=== PATIENT | female | born 1960 | race Caucasian/White ===

== ENCOUNTER 2017-12-15 12:36 | Observation (INO) | payer OTHER ==
--- NOTE | 2017-12-15 12:42 | ER Document Report ---
ED General - General Stated Complaint: POSSIBLE SYNCOPE Time Seen by Provider: 12/15/17 12:41 Notes: Patient is a 57-year-old female that presents to the emergency department after witnessed syncopal episode. History provided by both the patient and the patient's employer who is at bedside. The patient was outside, and started feeling lightheaded and sat down onto a bench, and then apparently had an episode where she had passed out and went in and out of consciousness, this lasted 5-6 minutes according to bystanders. She was diaphoretic, and had several episodes of vomiting. They did not witness any seizure activity. EMS was called and the patient was brought to the emergency department. At this time the patient is complaining of nausea, lightheadedness, and abdominal cramping, and a frontal headache. She denies having any recent fevers, chills, night sweats, chest pain, shortness of breath or difficulty breathing. She also does complain incidentally of having some dysuria over the past 24 hours. Denies any other complaints at this time. TRAVEL OUTSIDE OF THE [place] IN LAST 30 DAYS: No Past Medical History - Social History Smoking Status: Never Smoker Frequency of alcohol use: None Drug Abuse: None Family History: CAD - Sister had an OR at age 62.. denies: COPD, CVA - Medical History Notes: Denies chronic medical conditions. Past Surgical History: Reports: Hx Cholecystectomy Review of Systems - Review of Systems Notes: REVIEW OF SYSTEMS: CONSTITUTIONAL : Denies fever, chills, or sweats. Denies recent illness. EENT: Denies eye, ear, throat, or mouth pain or symptoms. Denies nasal or sinus congestion. CARDIOVASCULAR: Denies chest pain. RESPIRATORY: Denies cough, cold, or chest congestion. Denies shortness of breath, difficulty breathing, or wheezing. GASTROINTESTINAL: Positive for nausea, vomiting denies abdominal pain. Denies constipation. Last BM: GENITOURINARY: Positive for dysuria denies difficulty urinating,frequency, or blood in urine. FEMALE GENITOURINARY: Denies vaginal bleeding, abnormal or irregular periods. LMP: MUSCULOSKELETAL: Denies neck or back pain or joint pain or swelling. SKIN: Denies rash or skin lesions. HEMATOLOGIC : Denies easy bruising or bleeding. LYMPHATIC: Denies swollen, enlarged glands. NEUROLOGICAL: Positive for lightheadedness and syncopal episode. Denies headache. Denies weakness or paralysis or loss of use of either side. Denies problems with gait or speech. Denies sensory or motor loss. PSYCHIATRIC: Denies anxiety or stress or depression. ALL OTHER SYSTEMS REVIEWED AND NEGATIVE. Physical Exam - Vital signs Vitals: Resp Pulse Ox 19 98 12/15/17 14:27 12/15/17 14:27 - Notes Notes: PHYSICAL EXAMINATION: GENERAL: Appears uncomfortable, complaining of nausea, nontoxic appearing however HEAD: Atraumatic, normocephalic. EYES: Pupils equal round and reactive to light, extraocular movements intact, sclera anicteric, conjunctiva are normal. ENT: nares patent, oropharynx clear without exudates. Moist mucous membranes. NECK: Normal range of motion, supple without lymphadenopathy LUNGS: Breath sounds clear to auscultation bilaterally and equal. No wheezes rales or rhonchi. HEART: Regular rate and rhythm without murmurs ABDOMEN: Soft, nontender, normoactive bowel sounds. No guarding, no rebound. No masses appreciated. EXTREMITIES: Normal range of motion, no pitting or edema. No cyanosis. NEUROLOGICAL: No focal neurological deficits. Moves all extremities spontaneously and on command. PSYCH: Normal mood, normal affect. SKIN: Warm, Dry, normal turgor, no rashes or lesions noted. Course - Re-evaluation Re-evalutation: 12/15/17 12:42 Patient seen and examined, vital signs reviewed. Complaining of nausea on my exam, otherwise no focal findings, cardiac evaluation including EKG, troponin and chest x-ray obtained as well as CT of the head due to the patient's complaint of headache and syncope. Patient is also given IV fluids, Zofran. Results reviewed, patient noted to have slightly elevated troponin, continue to have nausea, she was given aspirin after noted elevated troponin, call was placed to the hospitalist for admission, which they are agreeable to, for serial troponin testing, patient was agreeable to this and made aware of findings. CT of her head was negative as well as her chest x-ray. EKG demonstrated nonspecific T wave inversions as noted. - Vital Signs Vital signs: Temp Pulse Resp BP Pulse Ox 20 154/73 H 96 12/15/17 15:01 12/15/17 15:01 12/15/17 15:01 - Laboratory Result Diagrams: 12/15/17 13:59 12/15/17 13:59 Laboratory results interpreted by me: 12/15/17 12/15/17 13:59 13:59 WBC 13.4 H RDW 14.4 H Seg Neutrophils % 85.6 H Lymphocytes % 10.3 L Absolute Neutrophils 11.4 H Potassium 3.5 L Glucose 160 H Total Bilirubin 1.4 H - Diagnostic Test Radiology reviewed: Image reviewed, Reports reviewed Radiology results interpreted by me: 12/15/17 16:22 No acute findings per radiology or my review. - EKG Interpretation by Me Additional EKG results interpreted by me: 12/15/17 14:29 EKG demonstrates normal sinus rhythm with a ventricular rate of 91 bpm, slight left axis deviation, QTC 463, there is T-wave inversion in lead V2 and V3 as well as lead III, with a predominantly negative QRS, no ST changes noted. Discharge - Discharge Clinical Impression: Elevated troponin, Nausea and vomiting, Hypokalemia Syncope Qualifiers: Syncope type: unspecified Qualified Code(s): R55 - Syncope and collapse Condition: Fair Disposition: ADMITTED OBSERVATION Admitting Provider: Hospitalist - Dr. Jaramillo Unit Admitted: Telemetry
[2017-12-15] MEDS ORDERED: ONDANSETRON 4 MG TAB.RAPDIS PO ONE (13:06)
[2017-12-15] MEDS ORDERED: NORMAL SALINE 1000 ML 1,000 ML IV ONE (13:06)
--- NOTE | 2017-12-15 14:00 | RADIOLOGY REPORT (SQ) ---
EXAM DESCRIPTION: CT HEAD WITHOUT COMPLETED DATE/TIME: 12/15/2017 1:48 pm REASON FOR STUDY: syncope, headache COMPARISON: None. TECHNIQUE: Axial images acquired through the brain without intravenous contrast. Images reviewed wi th bone, brain and subdural windows. Additional sagittal and coronal reconstructions were generated. Images stored on PACS. All CT scanners at this facility use dose modulation, iterative reconstruction, and/or weight based d osing when appropriate to reduce radiation dose to as low as reasonably achievable (ALARA). [facility]: Dose Right [facility]: CareDose [facility]: Dose Right [facility]: Teradose 4D [facility]: Smart Convrrt RADIATION DOSE: CT Rad equipment meets quality standard of care and radiation dose reduction techniq ues were employed. CTDIvol: 53.2 mGy. DLP: 1017 mGy-cm. mGy. LIMITATIONS: None. FINDINGS: VENTRICLES: Normal size and contour. CEREBRUM: No masses. No hemorrhage. No midline shift. No evidence for acute infarction. Normal gra y/white matter differentiation. No areas of low density in the white matter. CEREBELLUM: No masses. No hemorrhage. No alteration of density. No evidence for acute infarction. EXTRAAXIAL SPACES: No fluid collections. No masses. ORBITS AND GLOBE: No intra- or extraconal masses. Normal contour of globe without masses. CALVARIUM: No fracture. PARANASAL SINUSES: No fluid or mucosal thickening. SOFT TISSUES: No mass or hematoma. OTHER: No other significant finding. IMPRESSION: NORMAL BRAIN CT WITHOUT CONTRAST. EVIDENCE OF ACUTE STROKE: NO. COMMENT: Quality ID # 436: Final reports with documentation of one or more dose reduction techniques (e.g., Automated exposure control, adjustment of the mA and/or kV according to patient size, use of iterative reconstruction technique) TECHNICAL DOCUMENTATION: JOB ID: [id number] [employer]- All Rights Reserved Reading location - IP/workstation name: [email or web address]
--- NOTE | 2017-12-15 14:02 | RADIOLOGY REPORT (SQ) ---
EXAM DESCRIPTION: CHEST 2 VIEWS COMPLETED DATE/TIME: 12/15/2017 1:47 pm REASON FOR STUDY: syncope COMPARISON: 07/09/2014. EXAM PARAMETERS: NUMBER OF VIEWS: two views TECHNIQUE: Digital Frontal and Lateral radiographic views of the chest acquired. RADIATION DOSE: NA LIMITATIONS: none FINDINGS: LUNGS AND PLEURA: No opacities, masses or pneumothorax. No pleural effusion. MEDIASTINUM AND HILAR STRUCTURES: No masses or contour abnormalities. HEART AND VASCULAR STRUCTURES: Heart normal size. No evidence for failure. BONES: No acute findings. HARDWARE: None in the chest. OTHER: No other significant finding. IMPRESSION: NO ACUTE RADIOGRAPHIC FINDING IN THE CHEST. TECHNICAL DOCUMENTATION: JOB ID: [id number] [employer]- All Rights Reserved Reading location - IP/workstation name: [email or web address]
[2017-12-15 14:23] LABS: ABSOLUTE BASOPHILS # (AUTO) 0.1 10^3/uL (0.0-0.2); ABSOLUTE LYMPHOCYTES (AUTO) 1.4 10^3/uL (0.5-4.7); ABSOLUTE MONOCYTES (AUTO) 0.4 10^3/uL (0.1-1.4); ABSOLUTE NEUT (AUTO) 11.4 10^3/uL (1.7-8.2); BASOPHILS % (AUTO) 0.6 % (0-2); EOSINOPHILS % (AUTO) 0.2 % (0-6); HEMOGLOBIN 12.8 g/dL (12.0-15.5); LYMPHOCYTES % (AUTO) 10.3 % (13-45); MEAN CORPUSCULAR HEMOGLOBIN 29.8 pg (27.0-33.4); MEAN CORPUSCULAR HGB CONC 33.6 g/dL (32.0-36.0); MEAN CORPUSCULAR VOLUME 89 fl (80-97); MONOCYTES % (AUTO) 3.3 % (3-13); PLATELET COUNT 251 10^3/uL (150-450); RED BLOOD COUNT 4.28 10^6/uL (3.72-5.28); RED CELL DISTRIBUTION WIDTH 14.4 % (11.5-14.0); SEGMENTED NEUTROPHILS % (AUTO) 85.6 % (42-78); TOTAL CELLS COUNTED % (AUTO) 100 %; WHITE BLOOD COUNT 13.4 10^3/uL (4.0-10.5)
[2017-12-15 14:46] LABS: ALANINE AMINOTRANSFERASE 35 U/L (9-52); ALBUMIN 4.1 g/dL (3.5-5.0); ALKALINE PHOSPHATASE 91 U/L (38-126); ANION GAP 15 (5-19); ASPARTATE AMINO TRANSFERASE 29 U/L (14-36); BILIRUBIN,DIRECT 0.4 mg/dL (0.0-0.4); BILIRUBIN,TOTAL 1.4 mg/dL (0.2-1.3); BLOOD UREA NITROGEN 16 mg/dL (7-20); CARBON DIOXIDE 24 mmol/L (22-30); CHLORIDE 105 mmol/L (98-107); GLUCOSE 160 mg/dL (75-110); LIPASE 82.6 U/L (23-300); POTASSIUM 3.5 mmol/L (3.6-5.0); SODIUM 143.6 mmol/L (137-145); TOTAL PROTEIN 7.3 g/dL (6.3-8.2)
[2017-12-15] MEDS ORDERED: POTASSIUM CHLORIDE 10 MEQ CAPSULE.ER PO ONE (14:50)
[2017-12-15] MEDS ORDERED: ASPIRIN 81 MG TABLET, CHEWABLE PO ONE (16:21)
[2017-12-15] MEDS ORDERED: NORMAL SALINE 1000 ML 1,000 ML IV PRN (16:49)
--- NOTE | 2017-12-15 17:53 | EKG REPORT ---
SEVERITY:- BORDERLINE ECG - SINUS RHYTHM BORDERLINE T ABNORMALITIES, ANTERIOR LEADS : Confirmed by: Anselmo Arroyo MD 15-Dec-2017 17:53:06
[2017-12-15] MEDS ORDERED: ONDANSETRON HCL INJ/PF 4 MG/2 ML SDV IV PRN (18:03)
[2017-12-15 18:26] LABS: APPEARANCE,URINE SLIGHTLY-CLOUDY; BILIRUBIN,URINE NEGATIVE (NEGATIVE); COLOR,URINE YELLOW; GLUCOSE, URINE NEGATIVE (NEGATIVE); KETONES,URINE 20 mg/dL (NEGATIVE); LEUKOCYTE ESTERASE,URINE TRACE (NEGATIVE); NITRITE,URINE NEGATIVE (NEGATIVE); PROTEIN,URINE NEGATIVE (NEGATIVE); URINE SPECIFIC GRAVITY 1.016; UROBILINOGEN,URINE NEGATIVE mg/dL (<2.0)
[2017-12-15 21:15] LABS: CREATINE KINASE MB 1.66 ng/mL (<4.55)
[2017-12-15] MEDS ORDERED: HEPARIN SOD (PORCINE) 5,000 UNIT/ML 1 ML SYRINGE SUBCUT SCH (22:00)
--- NOTE | 2017-12-15 22:06 | RADIOLOGY REPORT (SQ) ---
EXAM DESCRIPTION: CTA CHEST COMPLETED DATE/TIME: 12/15/2017 9:51 pm REASON FOR STUDY: syncope COMPARISON: None. TECHNIQUE: CT scan of the chest performed using helical scanning technique with dynamic intravenous contrast injection. Images reviewed with lung, soft tissue and bone windows. Reconstructed coronal and sagittal MPR images reviewed. Additional 3 dimensional post-processing performed to develop Maximal Intensity Projection images (PR P). All images stored on PACS. All CT scanners at this facility use dose modulation, iterative reconstruction, and/or weight based d osing when appropriate to reduce radiation dose to as low as reasonably achievable (ALARA). [facility]: Dose Right [facility]: CareDose [facility]: Dose Right [facility]: Teradose 4D [facility]: Nexis Vision CONTRAST TYPE AND DOSE: contrast/concentration: Isovue 350.00 mg/ml; Total Contrast Delivered: 82.0 ml; Total Saline Delivered: 46.3 ml Contrast bolus optimized for the pulmonary arteries. Not diagnostic for the aorta RENAL FUNCTION: BUN 16 creatinine 0.9 RADIATION DOSE: CT Rad equipment meets quality standard of care and radiation dose reduction techniq ues were employed. CTDIvol: 9.9 - 22.8 mGy. DLP: 793 mGy-cm. . LIMITATIONS: None. FINDINGS: LUNGS AND PLEURA: There is ill-defined opacification in the right upper lobe posteriorly. AORTA AND GREAT VESSELS: No aneurysm. Contrast bolus not optimized for the aorta. HEART: No pericardial effusion. No significant coronary artery calcifications. PULMONARY ARTERIES: No emboli visualized in the main pulmonary arteries or the segmental branches. HILAR AND MEDIASTINAL STRUCTURES: There is a 5 cm heterogeneously enhancing mass at the thoracic inle t. No mediastinal or hilar adenopathy. HARDWARE: None in the chest. UPPER ABDOMEN: No significant findings. Limited exam. THYROID AND OTHER SOFT TISSUES: 5 cm heterogeneously enhancing mass likely arises in the thyroid. BONES: No acute or significant finding. 3D MIPS: Confirm above findings. OTHER: No other significant finding. IMPRESSION: 1. There is no evidence of pulmonary emboli. 2. There is 5 cm heterogeneously enhancing mass in the thoracic inlet. Likely thyroid mass. Concer nela for neoplasm. COMMENT: Quality ID # 436: Final reports with documentation of one or more dose reduction techniques (e.g., Automated exposure control, adjustment of the mA and/or kV according to patient size, use of iterative reconstruction technique) TECHNICAL DOCUMENTATION: JOB ID: [id number] [employer]- All Rights Reserved Reading location - IP/workstation name: [email or web address]
[2017-12-15] MEDS: ENOXAPARIN SODIUM INJ 100 MG/1 ML DISP.SYRIN SUBCUT SCH (22:13)
--- NOTE | 2017-12-15 22:30 | PDOC H&P ---
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 Patient says that she does not have a PCP and has not seen a primary doctor for the past several years. Patient works as a orthopedic assistant. She says that she was with the school kids in the playground around 11 AM when she started feeling lightheaded. She said that she started having dimming of her physician. She said that she passed out around 1130. She denied any prior palpitations, chest pain or shortness of breath. She denies any fever or chills. She has been apparently doing well until this episode. She denies any headache or dizziness. Past Surgical History Past Surgical History: Reports: Cholecystectomy Social History Smoking Status: Never Smoker Frequency of Alcohol Use: Rare Hx Recreational Drug Use: No Drugs: None Hx Prescription Drug Abuse: No Family History Family History: CAD - Sister had an AR at age 62.. denies: COPD, CVA Parental Family History Reviewed: No Children Family History Reviewed: No Sibling(s) Family History Reviewed.: No Medication/Allergy Home Medications: Fluticasone Propionate [Flonase Nasal Nelson 50 Mcg/Nelson 16 gm] 1 spray NAREB DAILY 12/15/17 Multivitamins W-Iron [Flintstones Chewable Multivit W/Fe Tab] 1 tab.chew PO DAILY 12/15/17 [place]-3/Dha/Epa/Fish Oil [Fish Oil 1,000 mg Softgel] 1,000 mg PO DAILY 12/15/17 Vitamin B Complex [B Complex] 1 each PO DAILY 12/15/17 Aspirin 81 mg PO DAILY #30 tab.chew 12/16/17 Atorvastatin Calcium [Lipitor 20 mg Tablet] 20 mg PO QHS #30 tablet 12/16/17 Clopidogrel Bisulfate [Plavix 75 mg Tablet] 75 mg PO DAILY #30 tablet 12/16/17 Levofloxacin [Levaquin 750 mg Tablet] 750 mg PO DAILY 7 Days #7 tablet 12/16/17 Metoprolol Tartrate [Lopressor 25 mg Tablet] 12.5 mg PO Q12 #60 tablet 12/16/17 Allergies/Adverse Reactions: No Known Allergies Allergy (Unverified 12/15/17 17:14) Review of Systems All systems: reviewed and no additional remarkable complaints except as stated - As mentioned above Physical Exam Vital Signs: Temp Pulse Resp BP Pulse Ox 97.9 F 91 20 152/79 H 100 12/15/17 17:50 12/15/17 17:50 12/15/17 17:50 12/15/17 17:50 12/15/17 17:50 Intake & Output 12/14/17 12/15/17 12/16/17 06:59 06:59 06:59 Intake Total 1000 Balance 1000 Weight 230 lb 6.129 oz General appearance: PRESENT: no acute distress, well-developed, well-nourished Head exam: PRESENT: atraumatic, normocephalic Eye exam: PRESENT: conjunctiva pink, EOMI, PERRLA. ABSENT: scleral icterus Ear exam: PRESENT: normal external ear exam Mouth exam: PRESENT: other - Dry lips and oral mucosa Neck exam: ABSENT: carotid bruit, JVD, lymphadenopathy, thyromegaly Respiratory exam: PRESENT: clear to auscultation john. ABSENT: rales, rhonchi, wheezes Cardiovascular exam: PRESENT: RRR. ABSENT: diastolic murmur, rubs, systolic murmur Pulses: PRESENT: normal dorsalis pedis pul GI/Abdominal exam: PRESENT: normal bowel sounds, soft. ABSENT: distended, guarding, mass, organolmegaly, rebound, tenderness Rectal exam: PRESENT: deferred Extremities exam: PRESENT: full ROM. ABSENT: calf tenderness, clubbing, pedal edema Neurological exam: PRESENT: alert, awake, oriented to person, oriented to place , oriented to time, oriented to situation, CN II-XII grossly intact. ABSENT: motor sensory deficit Results Laboratory Results: 12/15/17 17:28 Urine Color YELLOW Urine Appearance SLIGHTLY-CLOUDY Urine pH 6.0 Ur Specific [place] 1.016 Urine Protein NEGATIVE Urine Glucose (UA) NEGATIVE Urine Ketones 20 H Urine Blood NEGATIVE Urine Nitrite NEGATIVE Ur Leukocyte Esterase TRACE H Urine WBC (Auto) 5 Urine RBC (Auto) 2 Impressions: Chest X-Ray 12/15/17 13:07 IMPRESSION: NO ACUTE RADIOGRAPHIC FINDING IN THE CHEST. Head CT 12/15/17 13:07 IMPRESSION: NORMAL BRAIN CT WITHOUT CONTRAST. EVIDENCE OF ACUTE STROKE: NO. Assessment & Plan - Diagnosis (1) Syncope Qualifiers: Syncope type: unspecified Qualified Code(s): R55 - Syncope and collapse Is this a current diagnosis for this admission?: Yes Plan: Patient's syncope is more consistent with vasovagal syncope. Has received an IV fluid bolus in the ER. Will continue IV fluids. Orthostatic vital signs were not obtained prior to fluid resuscitation as patient was dizzy and feeling weak upon presentation. (2) Elevated troponin Is this a current diagnosis for this admission?: Yes Plan: Troponin is slightly elevated at 0.06. EKG shows T wave inversion on lead III but not on contiguous leads. Will contonue to cycle cardiac enzymes and EKGs. Patient currently denies chest pain at the moment.
[2017-12-15 23:20] LABS: FREE T3 3.79 pg/mL (2.77-5.27); FREE T4 (FREE THYROXINE) 1.62 ng/dL (0.78-2.19)
[2017-12-16 06:39] LABS: HEMATOCRIT 35.5 % (36.0-47.0); HEMOGLOBIN 12.1 g/dL (12.0-15.5); MEAN CORPUSCULAR HEMOGLOBIN 30.2 pg (27.0-33.4); MEAN CORPUSCULAR HGB CONC 34.1 g/dL (32.0-36.0); MEAN CORPUSCULAR VOLUME 89 fl (80-97); PLATELET COUNT 238 10^3/uL (150-450); RED CELL DISTRIBUTION WIDTH 14.2 % (11.5-14.0); WHITE BLOOD COUNT 8.3 10^3/uL (4.0-10.5)
[2017-12-16 06:57] LABS: ANION GAP 11 (5-19)
[2017-12-16 07:35] LABS: BLOOD UREA NITROGEN 12 mg/dL (7-20); CALCIUM 8.7 mg/dL (8.4-10.2); CARBON DIOXIDE 24 mmol/L (22-30); CHLORIDE 109 mmol/L (98-107); GLUCOSE 93 mg/dL (75-110); POTASSIUM 4.4 mmol/L (3.6-5.0); SODIUM 143.5 mmol/L (137-145)
--- NOTE | 2017-12-16 07:46 | EKG REPORT ---
SEVERITY:- BORDERLINE ECG - SINUS RHYTHM BORDERLINE T ABNORMALITIES, DIFFUSE LEADS : Confirmed by: Anselmo Arroyo MD 16-Dec-2017 07:45:31
--- NOTE | 2017-12-16 07:46 | EKG REPORT ---
SEVERITY:- BORDERLINE ECG - SINUS RHYTHM BORDERLINE T ABNORMALITIES, DIFFUSE LEADS : Confirmed by: Anselmo Arroyo MD 16-Dec-2017 07:45:18
[2017-12-16 08:35] VITALS: BP 129/79
[2017-12-16] MEDS: ENOXAPARIN SODIUM INJ 100 MG/1 ML DISP.SYRIN SUBCUT SCH (10:05)
[2017-12-16 10:09] LABS: APPEARANCE,URINE CLEAR; BILIRUBIN,URINE NEGATIVE (NEGATIVE); COLOR,URINE YELLOW; GLUCOSE, URINE NEGATIVE (NEGATIVE); KETONES,URINE NEGATIVE (NEGATIVE); LEUKOCYTE ESTERASE,URINE NEGATIVE (NEGATIVE); NITRITE,URINE NEGATIVE (NEGATIVE); PROTEIN,URINE NEGATIVE (NEGATIVE); URINE SPECIFIC GRAVITY 1.009; UROBILINOGEN,URINE NEGATIVE mg/dL (<2.0)
[2017-12-16] MEDS ORDERED: ASPIRIN 81 MG TABLET, CHEWABLE PO SCH (11:00)
--- NOTE | 2017-12-16 11:24 | XCELERA REPORT ---
[address] [address] Transthoracic Echocardiogram Report Name: JULIANNA JIMENEZ Age: 57 yrs Gender: Female : 1960 Patient Status: Inpatient Patient Location: [address] [place] [address] Study Date: 12/16/2017 08:43 AM Height: 62 in Weight: 230 lb BSA: 2.0 m2 Procedure: A complete two-dimensional transthoracic echocardiogram was performed (2D, M-mode, spectral and color flow Doppler). The study was technically adequate with some images being suboptimal in quality. Reason For Study: syncope Ordering Physician: NICOLE ZURITA Performed By: Yanelis Pacheco Interpretation Summary The left ventricular ejection fraction is normal. There is normal left ventricular wall thickness. The left ventricle is grossly normal size. Doppler measurements suggest pseudonormalized left ventricular relaxation, which is associated with grade II/IV or mild to moderate diastolic dysfunction Wall motion cannot be accurately commented on, but no definite regional wall motion abnormalities noted. The right ventricular systolic function is normal. The right ventricle is grossly normal size. The right atrium is normal in size The left atrial size is normal. There is no mitral regurgitation noted. There is no mitral valve stenosis. No aortic regurgitation is present. There is no aortic valve stenosis There is a trace or physiologic amount of tricuspid regurgitation There is no tricuspid stenosis. The aortic root is not well visualized but is probably normal size. The inferior vena cava appeared normal and decreased > 50% with respiration (RAP 5-10 mmHg) Minimal pericardial effusion. MMode/2D Measurements & Calculations RVDd: 2.5 cm LVIDd: 5.1 cm FS: 39.8 % Ao root diam: 2.7 cm IVSd: 0.75 cm LVIDs: 3.1 cm EDV(Teich): 122.5 ml Ao root area: 5.6 cm2 LVPWd: 0.82 cm ESV(Teich): 36.6 ml LA dimension: 3.0 cm EF(Teich): 70.1 % Doppler Measurements & Calculations MV E max rebel: MV P1/2t max rebel: Ao V2 max: LV V1 max P.0 cm/sec 97.3 cm/sec 119.0 cm/sec 3.2 mmHg MV A max rebel: MV P1/2t: 58.8 msec Ao max P.7 mmHg LV V1 max: 65.2 cm/sec MVA(P1/2t): 3.7 cm2 89.3 cm/sec MV E/A: 1.2 MV dec slope: 484.6 cm/sec2 MV dec time: 0.21 sec PA V2 max: TR max rebel: MV P1/2t-pr_phl: 89.6 cm/sec 176.3 cm/sec 58.8 msec PA max PG: TR max P.4 mmHg 3.2 mmHg Left Ventricle The left ventricle is grossly normal size. There is normal left ventricular wall thickness. The left ventricular ejection fraction is normal. Doppler measurements suggest pseudonormalized left ventricular relaxation, which is associated with grade II/IV or mild to moderate diastolic dysfunction. Wall motion cannot be accurately commented on, but no definite regional wall motion abnormalities noted. Right Ventricle The right ventricle is grossly normal size. There is normal right ventricular wall thickness. The right ventricular systolic function is normal. Atria The right atrium is normal in size. The left atrial size is normal. Interarterial septum not well visualized and not well dopplered. Cannot comment on ASD/PFO presence. Mitral Valve The mitral valve is grossly normal. There is no mitral valve stenosis. There is no mitral regurgitation noted. Aortic Valve The aortic valve is grossly normal. There is no aortic valve stenosis. No aortic regurgitation is present. Tricuspid Valve The tricuspid valve is not well visualized, but is grossly normal. There is no tricuspid stenosis. There is a trace or physiologic amount of tricuspid regurgitation. Pulmonic Valve The pulmonic valve is not well visualized. Great Vessels The aortic root is not well visualized but is probably normal size. The inferior vena cava appeared normal and decreased > 50% with respiration (RAP 5-10 mmHg). Effusions Minimal pericardial effusion. : NICOLE ZURITA > Brian Wolf
[2017-12-16] MEDS ORDERED: NORMAL SALINE 500 ML IV PRN (12:30)
--- NOTE | 2017-12-16 15:33 | Progress Note ---
Provider Note Provider Note: Patient was seen earlier this morning. Patient was admitted with syncope. Patient claims that she was on the ground, standing up when she felt dizzy and lightheaded. Patient then tried to walk over to the bench where she passed out. When patient came around, she felt nauseous and vomited a few times. Patient was subsequently transported to the emergency room and was admitted. Patient was treated with IV fluids. EKGs has been so far normal however troponin I came back in the low suggestive range. On repeated questioning patient denied any chest pain as such. However patient claims that last night she had chills and needed up to [address] scan of the chest showed right upper lobe infiltrate suggestive of a pneumonic process. Patient did have a 2D echocardiogram which was reviewed. It showed LVEF to be normal no significant valvular abnormalities noted. CT scans reviewed by me showed no no coronary calcification. Troponin I elevation is felt to be related to syncope, possible systemic inflammatory response syndrome, Exam this morning was completely unremarkable. Patient does wants to be discharged home. I feel that if patient is discharged today, she would need to have a cardiac event monitor placed today. Would also recommend broad-spectrum antibiotics. Patient can be discharged on aspirin, small dose of beta-alonzo with close cardiology follow-up. If any questions please feel to give me a call.
--- NOTE | 2017-12-16 15:41 | RADIOLOGY REPORT (SQ) ---
EXAM DESCRIPTION: CAROTID DOPPLER COMPLETED DATE/TIME: 12/16/2017 10:51 am REASON FOR STUDY: syncope COMPARISON: CT brain 12/15/2017 TECHNIQUE: Grayscale ultrasound, Doppler velocity and spectra, and color Doppler images acquired of the extra-cranial carotid and vertebral arteries. Images stored on PACS. LIMITATIONS: None. FINDINGS: RIGHT CAROTID CCA Velocities: Within normal limits. Peak systolic velocity 0.72 m/sec, end-diastolic velocity 0.26 m/sec. ICA Velocities Peak systolic 0.70 m/s. End diastolic 0.31 m/s. Proximal ICA/CCA peak systolic ratio 1.1. Spectra normal. No significant plaque. LEFT CAROTID CCA Velocities: Within normal limits. Peak systolic velocity 0.75 m/sec, and end-diastolic velocity 0.19 m/sec. ICA Velocities Peak systolic 0.81 m/s. End diastolic 0.28 m/s. Proximal ICA/CCA peak systolic ratio 1.4. Spectra normal. No significant plaque. VERTEBRAL ARTERIES: Antegrade flow. Normal waveforms. SUBCLAVIAN ARTERIES: Not evaluated. OTHER: No other significant finding. IMPRESSION: NO HEMODYNAMICALLY SIGNIFICANT STENOSIS. COMMENT: Quality ID #[id number]: Velocity criteria are extrapolated from the diameter data as defined by t he Society of Radiologists in Ultrasound Consensus Conference. Radiology 2003: 229; 340-346. TECHNICAL DOCUMENTATION: JOB ID: [id number] [employer]- All Rights Reserved Reading location - IP/workstation name: [email or web address]
--- NOTE | 2017-12-16 17:22 | PDOC DISCHARGE SUMMARY ---
General - Admit/Disc Date/PCP Admission Date/Primary Care Provider: 12/15/17 16:15 Discharge Date: 12/16/17 - Discharge Diagnosis (1) Syncope Is this a current diagnosis for this admission?: Yes (2) Elevated troponin Is this a current diagnosis for this admission?: Yes - Additional Information Discharge Activity: Activity As Tolerated, Balance Activity w/Rest Prescriptions: Aspirin 81 mg PO DAILY #30 tab.chew Atorvastatin Calcium [Lipitor 20 mg Tablet] 20 mg PO QHS #30 tablet Clopidogrel Bisulfate [Plavix 75 mg Tablet] 75 mg PO DAILY #30 tablet Levofloxacin [Levaquin 750 mg Tablet] 750 mg PO DAILY 7 Days #7 tablet Metoprolol Tartrate [Lopressor 25 mg Tablet] 12.5 mg PO Q12 #60 tablet Home Medications: Fluticasone Propionate [Flonase Nasal [place] 50 Mcg/[place] 16 gm] 1 spray NAREB DAILY 12/15/17 Multivitamins W-Iron [Flintstones Chewable Multivit W/Fe Tab] 1 tab.chew PO DAILY 12/15/17 [place]-3/Dha/Epa/Fish Oil [Fish Oil 1,000 mg Softgel] 1,000 mg PO DAILY 12/15/17 Vitamin B Complex [B Complex] 1 each PO DAILY 12/15/17 Aspirin 81 mg PO DAILY #30 tab.chew 12/16/17 Atorvastatin Calcium [Lipitor 20 mg Tablet] 20 mg PO QHS #30 tablet 12/16/17 Clopidogrel Bisulfate [Plavix 75 mg Tablet] 75 mg PO DAILY #30 tablet 12/16/17 Levofloxacin [Levaquin 750 mg Tablet] 750 mg PO DAILY 7 Days #7 tablet 12/16/17 Metoprolol Tartrate [Lopressor 25 mg Tablet] 12.5 mg PO Q12 #60 tablet 12/16/17 History of Present Illness History of Present Illness: JULIANNA MAY is a 57 year old female with no known significant past medical history from 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 Patient says that she does not have a PCP and has not seen a primary doctor for the past several years. Patient works as a programs assistant. She says that she was with the school kids in the playground around 11 AM when she started feeling lightheaded. She said that she started having dimming of her physician. She said that she passed out around 11:30. She denied any prior palpitations, chest pain or shortness of breath. She denies any fever or chills but did feel chilly when she was seen in the ER. She has been apparently doing well until this episode. She denies any headache or dizziness. Hospital Course Hospital Course: Ms. 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 Patient syncope is more consistent with vasovagal syncope. However upon presentation, patient had slight elevated troponins. She had some nausea but denied chest pain or shortness of breath. Patient stroke troponin did went up to 0.15 and she was treated with therapeutic dose of Lovenox. Her troponin trended down to 0.015. Serial EKGs were unremarkable for acute ST-T wave changes or changes indicative of myocardial infarction. A CT of the chest was pursued because of her mildly elevated d-dimer and this was unremarkable for pulmonary embolism. It did show a thyroid mass. This was discussed with patient and she says that she had FNAB of this mass a few years ago and was told that this was benign. Chest CT did show possible pneumonia on the right lung and patient was started on levofloxacin. Troponin elevation was deemed to be more likely from patient's initial low blood pressure and syncopal episode. Echocardiogram showed preserved EF and grade 2 diastolic dysfunction. Carotid Dopplers were normal. Discussed with cardio and patient was started on aspirin, beta blockers and statin. She will also be sent home on Plavix for a month. Release Engineer recommended patient to go home on an event monitor because of the syncope. She will follow-up with Dr. Wolf on Tuesday. Patient does not see a family doctor and was strongly recommended to see a new one to continue following up with her newly started medications and her thyroid mass. Patient verbalized that she does not want to see a family doctor but would think about it. She was given referrals for a new PCP anyway. Physical Exam Vital Signs: Temp Pulse Resp BP Pulse Ox 98.4 F 77 16 129/79 H 96 12/16/17 15:21 12/16/17 15:21 12/16/17 15:21 12/16/17 15:21 12/16/17 15:21 Intake & Output 12/15/17 12/16/17 12/17/17 06:59 06:59 06:59 Intake Total 1999 500 Balance 1999 500 Weight 225 lb 4.999 oz General appearance: PRESENT: no acute distress, well-developed, well-nourished Head exam: PRESENT: atraumatic, normocephalic Eye exam: PRESENT: conjunctiva pink, EOMI, PERRLA. ABSENT: scleral icterus Ear exam: PRESENT: normal external ear exam Neck exam: ABSENT: carotid bruit, JVD, lymphadenopathy, thyromegaly Respiratory exam: PRESENT: clear to auscultation john. ABSENT: rales, rhonchi, wheezes Cardiovascular exam: PRESENT: RRR. ABSENT: diastolic murmur, rubs, systolic murmur Vascular exam: PRESENT: normal capillary refill Rectal exam: PRESENT: deferred Neurological exam: PRESENT: alert, awake, oriented to person, oriented to place , oriented to time, oriented to situation, CN II-XII grossly intact. ABSENT: motor sensory deficit Results Laboratory Results: 12/16/17 06:16 12/16/17 06:16 12/15/17 12/16/17 12/16/17 17:28 06:16 06:16 WBC 8.3 RBC 4.00 Hgb 12.1 Hct 35.5 L MCV 89 MCH 30.2 MCHC 34.1 RDW 14.2 H Plt Count 238 Sodium 143.5 Potassium 4.4 Chloride 109 H Carbon Dioxide 24 Anion Gap 11 BUN 12 Creatinine 0.69 Est GFR ( Amer) > 60 Est GFR (Non-Af Amer) > 60 Glucose 93 Calcium 8.7 Urine Color YELLOW Urine Appearance SLIGHTLY-CLOUDY Urine pH 6.0 Ur Specific [place] 1.016 Urine Protein NEGATIVE Urine Glucose (UA) NEGATIVE Urine Ketones 20 H Urine Blood NEGATIVE Urine Nitrite NEGATIVE Ur Leukocyte Esterase TRACE H Urine WBC (Auto) 5 Urine RBC (Auto) 2 Stool Occult Blood 12/16/17 12/16/17 06:55 08:30 WBC RBC Hgb Hct MCV MCH MCHC RDW Plt Count Sodium Potassium Chloride Carbon Dioxide Anion Gap BUN Creatinine Est GFR ( Amer) Est GFR (Non-Af Amer) Glucose Calcium Urine Color YELLOW Urine Appearance CLEAR Urine pH 6.0 Ur Specific [place] 1.009 Urine Protein NEGATIVE Urine Glucose (UA) NEGATIVE Urine Ketones NEGATIVE Urine Blood SMALL H Urine Nitrite NEGATIVE Ur Leukocyte Esterase NEGATIVE Urine WBC (Auto) 1 Urine RBC (Auto) Stool Occult Blood NEGATIVE 12/15/17 12/15/17 12/16/17 19:56 19:56 06:16 CK-MB (CK-2) 1.66 Troponin I 0.158 0.046 NT-Pro-B Natriuret Pep 174 12/16/17 14:14 CK-MB (CK-2) Troponin I 0.015 NT-Pro-B Natriuret Pep Impressions: Chest/Abdomen CTA 12/15/17 00:00 IMPRESSION: 1. There is no evidence of pulmonary emboli. 2. There is 5 cm heterogeneously enhancing mass in the thoracic inlet. Likely thyroid mass. Concerning for neoplasm. Chest X-Ray 12/15/17 13:07 IMPRESSION: NO ACUTE RADIOGRAPHIC FINDING IN THE CHEST. Head CT 12/15/17 13:07 IMPRESSION: NORMAL BRAIN CT WITHOUT CONTRAST. EVIDENCE OF ACUTE STROKE: NO. Carotid Doppler Study 12/16/17 00:00 IMPRESSION: NO HEMODYNAMICALLY SIGNIFICANT STENOSIS. Qualifiers - * PATIENT BEING DISCHARGED WITH ANY OF THE FOLLOWING DIAGNOSIS: No
--- NOTE | 2017-12-16 18:25 | PDOC CONSULTATION ---
Consultation Consult Date: 12/16/17 Attending physician:: Ella Consult reason:: Syncope History of Present Illness Admission Date/PCP: 12/15/17 16:15 Patient complains of: Syncope History of Present Illness: JULIANNA JIMENEZ is a 57 year old female, was seen earlier this morning. Patient was admitted with syncope. Patient claims that she was on the ground, standing up when she felt dizzy and lightheaded. Patient then tried to walk over to the bench where she passed out. When patient came around, she felt nauseous and vomited a few times. Patient was subsequently transported to the emergency room and was admitted. Patient was treated with IV fluids. EKGs has been so far normal however troponin I came back in the low suggestive range. On repeated questioning patient denied any chest pain as such. However patient claims that last night she had chills and needed up to [address] scan of the chest showed right upper lobe infiltrate suggestive of a pneumonic process. Patient denied any prior history of overt syncopal spell however had noted some intermittent dizziness when she is up and about for some time. Patient denied any prior history of strokes, myocardial infarction, angina, seizure disorder. Past Surgical History Past Surgical History: Reports: Cholecystectomy Social History Information Source: Patient Smoking Status: Never Smoker Frequency of Alcohol Use: Rare Hx Recreational Drug Use: No Drugs: None Hx Prescription Drug Abuse: No - Advance Directive Resuscitation Status: Full Code Surrogate healthcare decision maker:: Patient sister is the surrogate decision-maker Family History Family History: CAD - Sister had an WI at age 62.. denies: COPD, CVA Parental Family History Reviewed: Yes Children Family History Reviewed: Yes Sibling(s) Family History Reviewed.: Yes Medication/Allergy Home Medications: Fluticasone Propionate [Flonase Nasal [place] 50 Mcg/[place] 16 gm] 1 spray NAREB DAILY 12/15/17 Multivitamins W-Iron [Flintstones Chewable Multivit W/Fe Tab] 1 tab.chew PO DAILY 12/15/17 [place]-3/Dha/Epa/Fish Oil [Fish Oil 1,000 mg Softgel] 1,000 mg PO DAILY 12/15/17 Vitamin B Complex [B Complex] 1 each PO DAILY 12/15/17 Aspirin 81 mg PO DAILY #30 tab.chew 12/16/17 Atorvastatin Calcium [Lipitor 20 mg Tablet] 20 mg PO QHS #30 tablet 12/16/17 Clopidogrel Bisulfate [Plavix 75 mg Tablet] 75 mg PO DAILY #30 tablet 12/16/17 Levofloxacin [Levaquin 750 mg Tablet] 750 mg PO DAILY 7 Days #7 tablet 12/16/17 Metoprolol Tartrate [Lopressor 25 mg Tablet] 12.5 mg PO Q12 #60 tablet 12/16/17 Allergies/Adverse Reactions: No Known Allergies Allergy (Unverified 12/15/17 17:14) Review of Systems Review of Systems: Please see history of present illness and past medical history as wall. Constitutional: No fever or chills reported. Head : No recent chronic headaches, recent head injury. Eyes: No recent eye pain, diplopia, redness, discharge, acute visual changes. Ears: No recent chronic ear pain, acute hearing loss, ear discharge. Oral cavity: No recent ulcerations, bleeding, oral cavity discomfort. Neck: No recent acute neck pain reported. Hematologic: No recent easy bruising or bleeding. Lymphatic: No recent lymph node enlargement reported. Cardiovascular system review: See history of present illness. Respiratory system review: No hemoptysis or blood clots in the lungs reported. Mild Shortness of breath on exertion Gastrointestinal system review: Negative for any recent acute hematemesis, melena. Genitourinary system review: No recent acute or chronic hematuria, flank pain, UTI etc. reported. Skin system review: Negative for any recent abnormal bruising, no rash, no pruritus reported. Neurologic: No prior history of strokes, mini strokes, seizure disorder. Psychologic: No history of major psychosis or major depression reported. Musculoskeletal: Minor aches and pains reported. No acute joint swelling reported. Endocrine: No recent polyuria, polydipsia, recent heat or cold intolerance. Physical Exam Vital Signs: Temp Pulse Resp BP Pulse Ox 98.4 F 77 16 129/79 H 96 12/16/17 15:21 12/16/17 15:21 12/16/17 15:21 12/16/17 15:21 12/16/17 15:21 Intake & Output 12/15/17 12/16/17 12/17/17 06:59 06:59 06:59 Intake Total 1999 500 Balance 1999 500 Weight 102.2 kg Exam: GENERAL: well-nourished and in no acute distress. Alert and oriented x3 HEAD: Atraumatic, normocephalic. EYES: Pupils equal round and reactive to light, extraocular movements intact, sclera anicteric, conjunctiva are normal. ENT: TMs normal, nares patent, oropharynx clear without exudates. Moist mucous membranes. No oral ulcerations or bleeding gums noted NECK: supple without lymphadenopathy. Trachea is central. No cervical or axillary lymphadenopathy noted. Carotids are 2+, JVD WNL LUNGS: Respiration seems nonlabored, no significant accessory muscle action noted. Breath sounds clear to auscultation bilaterally and equal noted. No wheezes rales or rhonchi noted. No significant dullness noted on percussion. CHEST: Palpation of the chest wall shows no significant chest wall tenderness. HEART: Howard ALUMINUM CAN COLLECTOR, No PSH, 1/6 VALE aortic area, 1/6 michael systolic murmur mitral area, no rubs, no gallops. ABDOMEN: Soft, no significant tenderness appreciated, normoactive bowel sounds. No guarding, no rebound. No rigidity noted . No masses appreciated. EXTREMITIES: Pedal pulses are 1-2+, no calf tenderness noted. No clubbing or cyanosis. negative pedal edema noted NEUROLOGICAL: Focused neurological exam showed no significant neurologic deficit. Normal speech, no focal weakness appreciated. PSYCH: Normal mood, normal affect. Judgment and insight within normal limits. SKIN: No significant ecchymosis, skin is noted to be warm. MUSCULOSKELETAL EXAM: No significant acute joint swelling noted. Results Laboratory Results: 12/16/17 06:16 12/16/17 06:16 12/15/17 12/16/17 12/16/17 17:28 06:16 06:16 WBC 8.3 RBC 4.00 Hgb 12.1 Hct 35.5 L MCV 89 MCH 30.2 MCHC 34.1 RDW 14.2 H Plt Count 238 Sodium 143.5 Potassium 4.4 Chloride 109 H Carbon Dioxide 24 Anion Gap 11 BUN 12 Creatinine 0.69 Est GFR ( Amer) > 60 Est GFR (Non-Af Amer) > 60 Glucose 93 Calcium 8.7 Urine Color YELLOW Urine Appearance SLIGHTLY-CLOUDY Urine pH 6.0 Ur Specific [place] 1.016 Urine Protein NEGATIVE Urine Glucose (UA) NEGATIVE Urine Ketones 20 H Urine Blood NEGATIVE Urine Nitrite NEGATIVE Ur Leukocyte Esterase TRACE H Urine WBC (Auto) 5 Urine RBC (Auto) 2 Stool Occult Blood 12/16/17 12/16/17 06:55 08:30 WBC RBC Hgb Hct MCV MCH MCHC RDW Plt Count Sodium Potassium Chloride Carbon Dioxide Anion Gap BUN Creatinine Est GFR ( Amer) Est GFR (Non-Af Amer) Glucose Calcium Urine Color YELLOW Urine Appearance CLEAR Urine pH 6.0 Ur Specific [place] 1.009 Urine Protein NEGATIVE Urine Glucose (UA) NEGATIVE Urine Ketones NEGATIVE Urine Blood SMALL H Urine Nitrite NEGATIVE Ur Leukocyte Esterase NEGATIVE Urine WBC (Auto) 1 Urine RBC (Auto) Stool Occult Blood NEGATIVE 12/15/17 12/15/17 12/16/17 19:56 19:56 06:16 CK-MB (CK-2) 1.66 Troponin I 0.158 0.046 NT-Pro-B Natriuret Pep 174 12/16/17 14:14 CK-MB (CK-2) Troponin I 0.015 NT-Pro-B Natriuret Pep EKG Comments: Sinus rhythm, no acute ST-T wave changes are noted. Impressions: Chest/Abdomen CTA 12/15/17 00:00 IMPRESSION: 1. There is no evidence of pulmonary emboli. 2. There is 5 cm heterogeneously enhancing mass in the thoracic inlet. Likely thyroid mass. Concerning for neoplasm. Chest X-Ray 12/15/17 13:07 IMPRESSION: NO ACUTE RADIOGRAPHIC FINDING IN THE CHEST. Head CT 12/15/17 13:07 IMPRESSION: NORMAL BRAIN CT WITHOUT CONTRAST. EVIDENCE OF ACUTE STROKE: NO. Carotid Doppler Study 12/16/17 00:00 IMPRESSION: NO HEMODYNAMICALLY SIGNIFICANT STENOSIS. Assessment & Plan - Diagnosis (1) Syncope Qualifiers: Syncope type: unspecified Qualified Code(s): R55 - Syncope and collapse Is this a current diagnosis for this admission?: Yes (2) Elevated troponin Is this a current diagnosis for this admission?: Yes (3) Nausea and vomiting Qualifiers: Vomiting Intractability: unspecified Is this a current diagnosis for this admission?: Yes (4) Right upper lobe pneumonia Qualifiers: Pneumonia type: due to unspecified organism Qualified Code(s): J18.1 - Lobar pneumonia, unspecified organism Is this a current diagnosis for this admission?: Yes - Notes Notes: Syncope: [place] to be neurocardiogenic/vasovagal based on history. Patient was educated about the reason for vasovagal syncope. Discussed that it tends to occur more when he was at not at the of physical mental rest. Patient also made the mistake of trying to walk to the bench. Elevated troponin I: Most likely related to transient hypotension resulting from syncope, could well be related to systemic inflammatory response syndrome from right upper lobe pneumonia. Patient however does not have any fever or chills. Recommend broad-spectrum antibiotics. Nausea and vomiting: Possibly related to vasovagal activation, could be related to systemic inflammatory response syndrome. Sometimes intense retching and nausea vomiting cause enough rise in intrathoracic pressures to impede coronary circulation and causing rising troponin I. Right upper lobe pneumonia: Could have been related to aspiration. Continue empiric antibiotic therapy. Patient did want to be discharged. Feel that in view of troponin I elevation, a cardiac event monitoring is important. This patient was supposed to get on the day of discharge from my office. - Time Time Spent: 30 to 50 Minutes - CODE STATUS was discussed, patient remains full code. Surrogate decision-maker unchanged. Multiple medical problems were addressed. More than 50% of the time spent coordinating care, discussing management plans with involved caregivers. Management plans discussed with involved personnels. Medical decision making was of moderate to high complexity , patient's has multiple comorbidities. Medications reviewed and adjusted accordingly: Yes
[2017-12-16] MEDS ORDERED: ATORVASTATIN CALCIUM 20 MG TABLET PO SCH (22:00)
[2017-12-16] MEDS ORDERED: METOPROLOL TARTRATE 25 MG TABLET PO SCH (22:00)
[2017-12-17] MEDS ORDERED: CLOPIDOGREL BISULFATE 75 MG TABLET PO SCH (10:00)
[2017-12-17] MEDS ORDERED: LEVOFLOXACIN 750 MG TABLET PO SCH (10:00)
[2017-12-22 03:37] LABS: CK MACRO TYPE 1 0 % (Not Observ); CK MACRO TYPE 2 0 % (Not Observ); CK-MB 0 % (0-3); CK-MM 100 % (97-100); CREATINE KINASE TOTAL 91 U/L (24-173)
[2017-12-22 12:33] LABS: CK-BB 0 % (0)
== END 2017-12-16 16:02 | disposition home or self-care (01) ==
LOC: ER 12:36 → EH 16:15 → 4N 17:25
PROVIDERS: ADMIT Internal Medicine; ATTEND Internal Medicine
DX: R55 Syncope and collapse (principal); R79.89 Other specified abnormal findings of blood chemistry; R11.2 Nausea with vomiting, unspecified; E07.9 Disorder of thyroid, unspecified; I51.89 Other ill-defined heart diseases; R91.8 Other nonspecific abnormal finding of lung field; R06.02 Shortness of breath; R61 Generalized hyperhidrosis; R30.0 Dysuria; R51 Headache; E87.6 Hypokalemia; R68.83 Chills (without fever); Z79.899 Other long term (current) drug therapy; Z98.890 Other specified postprocedural states; Z90.49 Acquired absence of other specified parts of digestive tract; Z82.49 Family history of ischemic heart disease and other diseases of the circulatory system; Z86.39 Personal history of other endocrine, nutritional and metabolic disease
CPT/HCPCS: 93005 ×3; 99285; 96360; 96361; 36415 ×2; 84439; 82553; 82552; 83690; 84443; 85025; 85027; 82272; 80048; 80053; 81001 ×2; 84484 ×2; 84481; 85379; 83880; 93306; 93880; 71046; 70450; 71275; 93010 ×2; G0378 ×3; S0119; J3490 ×2; J7030; J7040; J1650 ×2